=== PATIENT | male | born 1970 | race Caucasian/White ===

== ENCOUNTER → 2017-10-06 | Outpatient (CLI) | payer MEDICARE, MEDICAID ==
[~2017-10-06] MED LIST: ISOVUE-370 76% 100ML VIAL (Q9967) As Ordered
== END ==
LOC: M RAD 12:22
DX: R55 Syncope and collapse (principal); R07.9 Chest pain, unspecified; R06.09 Other forms of dyspnea; R06.02 Shortness of breath
CPT/HCPCS: Q9967

== ENCOUNTER → 2018-11-15 | Outpatient (CLI) | payer MEDICARE, MEDICAID ==
[~2018-11-15] MED LIST changes: -ISOVUE-370 76% 100ML VIAL (Q9967) As Ordered; +OXYC1TAB23 PO
--- NOTE | 2018-11-15 12:27 | REP ---
Bilateral lower extremity arterial duplex ultrasonography: Right lower extremity: Right brachial artery peak systole: 120 mmHg. Right dorsalis pedis peak systole: 136 mmHg. Right [employer]ER peak systole: 140 mmHg. KAEL: 1.17. Peak Systolic Phasicity Velocity [employer] 119.5 triphasic Profunda 101.5 triphasic SFA prox 100.3 triphasic SFA mid 87.8 triphasic SFA dist 71.4 triphasic Pop 64.2 triphasic JAYY prox 51.3 triphasic Tib/P tr 53.7 triphasic [employer] pr 42.8 triphasic [employer] dst 79.7 triphasic JAYY dst 45.1 triphasic Left lower extremity: Left brachial artery peak systole: 120 mmHg. Left dorsalis pedis peak systole: 122 mmHg. Left [employer]ER peak systole of 120 mmHg. KAEL: 1.07. Peak Systolic Phasicity Velocity [employer] 86.0 triphasic Profunda 55.3 triphasic SFA prox 69.7 triphasic SFA mid 69.2 triphasic SFA dist 56.2 triphasic Pop 50.1 triphasic JAYY prox 20.4 triphasic Tib/P tr 46.2 triphasic [employer] pr 33.3 triphasic [employer] dst 50.0 triphasic JAYY dst 52.3 triphasic There is very mild atheromatous plaque bilaterally. The wave forms are triphasic bilaterally. There is no stenosis on the right or the left. Incidentally identified is fluid surrounding a tendon posterior to the medial malleolus compatible with tenosynovitis. Electronically Signed by Jessee Nunn MD 11/15/2018 12:19 P
== END ==
LOC: M RAD 10:10
PROVIDERS: ATTEND Surgery Vascular Surgery
DX: I70.213 Atherosclerosis of native arteries of extremities with intermittent claudication, bilateral legs (principal)

== ENCOUNTER → 2019-08-17 | Outpatient (REF) | payer MEDICARE, MEDICAID ==
[2019-08-17 16:14] LABS: ALBUMIN 3.9 GM/DL (3.2-5.2); ALT/SGPT 15 U/L (12-78); BILIRUBIN,TOTAL 0.6 MG/DL (0.2-1.0); BLOOD UREA NITROGEN 11 MG/DL (7-18); CALCIUM LEVEL 9.4 MG/DL (8.5-10.1); CARBON DIOXIDE LEVEL 30 MEQ/L (21-32); CHLORIDE LEVEL 102 MEQ/L (98-107); CHOLESTEROL LEVEL 220 MG/DL (<200); CHOLESTEROL RISK RATIO 6.111 (<5); CREATININE FOR GFR 1.01 MG/DL (0.70-1.30); GLOMERULAR FILTRATION RATE > 60.0 (>56); GLUCOSE, FASTING 79 MG/DL (70-100); HDL CHOLESTEROL 36 MG/DL (>40); LDL CHOLESTEROL 158 MG/DL (<100); NON-HDL-C 184 MG/DL; POTASSIUM SERUM 4.3 MEQ/L (3.5-5.1); SODIUM LEVEL 137 MEQ/L (136-145); TRIGLYCERIDES LEVEL 130 MG/DL (<150)
[2019-08-17 16:22] LABS: HEMOGLOBIN A1c 5.5 %
== END ==
LOC: M SFHCCLAY 11:01
PROVIDERS: ATTEND Family Medicine
DX: I25.10 Atherosclerotic heart disease of native coronary artery without angina pectoris (principal); R73.01 Impaired fasting glucose
CPT/HCPCS: 80053; 80061; 83036; G0463

== ENCOUNTER → 2025-03-22 | Outpatient (CLI) | payer MEDICARE, MEDICAID ==
[~2025-03-22] MED LIST changes: +ACET-683 PO; +AMOX875T2
== END ==
LOC: M SOG 07:20
PROVIDERS: ATTEND Neuromusculoskeletal Medicine, Sports Medicine
DX: M25.511 Pain in right shoulder (principal)